=== PATIENT | female | born 1985 | race Asian ===

== ENCOUNTER 2016-11-14 19:58 | Emergency (ER) | payer OTHER ==
[~2016-11-14] VITALS: Ht 154.9 cm; Wt 63.6 kg
[2016-11-14 20:07] VITALS: BP 142/80; TEMP 97.5
[2016-11-14] MEDS ORDERED: NORCO 325 MG-51 TAB PO (21:39)
[2016-11-14 22:07] VITALS: PULSE 86
[2016-11-15] MEDS ORDERED: NORCO 325 MG-7.1 TAB PO (15:20)
== END 2016-11-14 22:14 | disposition home or self-care (01) ==
LOC: COL.ER 19:58
DX: S52.502A Unspecified fracture of the lower end of left radius, initial encounter for closed fracture (principal); S52.612A Displaced fracture of left ulna styloid process, initial encounter for closed fracture; W19.XXXA Unspecified fall, initial encounter
CPT/HCPCS: J2270; J2405

== ENCOUNTER 2016-11-15 11:17 | Day surgery (SDC) | payer OTHER ==
[~2016-11-15] VITALS: Ht 157.5 cm; Wt 64.3 kg
[~2016-11-15 11:17] MED LIST: NORCO 325 MG-51 TAB PO
[2016-11-15 12:03] VITALS: BP 129/78; PULSE 96; TEMP 98
[2016-11-15 15:00] VITALS: BP 125/73; PULSE 101; TEMP 97.1
[2016-11-15 15:15] VITALS: BP 133/80; PULSE 93
[2016-11-15] MEDS ORDERED: NORCO 325 MG-7.1 TAB PO (15:20)
[2016-11-15 15:30] VITALS: BP 146/79; PULSE 98
== END 2016-11-15 16:26 | disposition home or self-care (01) ==
LOC: SDCO 11:17
DX: S52.532A Colles' fracture of left radius, initial encounter for closed fracture (principal); S52.612A Displaced fracture of left ulna styloid process, initial encounter for closed fracture; W19.XXXA Unspecified fall, initial encounter
CPT/HCPCS: C1713; J0690; J1100; J1885; J2250; J2405; J2704; J7120